=== PATIENT | male | born 1985 | race Hispanic/Latino ===

== ENCOUNTER 2017-07-14 17:54 | Emergency (ER) | payer SELFPAY ==
[~2017-07-14] VITALS: Ht 185.4 cm; Wt 159.0 kg
[~2017-07-14 17:54] MED LIST: CEPHALEXIN500 MG PO; LORTAB 5 OR; NO HOME MEDS; ROBITUSSIN AC10 ML PO; ULTRAM50 M1 PO
[2017-07-14] MEDS ORDERED: NAPROSYN500 MG PO (19:05)
[2017-07-14 19:09] VITALS: BP 133/84
== END 2017-07-14 19:10 | disposition home or self-care (01) | DRG 563 ==
LOC: ED 17:54
DX: S93.601A Unspecified sprain of right foot, initial encounter (principal); M79.671 Pain in right foot

== ENCOUNTER 2017-12-07 09:13 | Emergency (ER) | payer OTHER ==
[~2017-12-07] VITALS: Ht 185.4 cm; Wt 190.0 kg
[~2017-12-07 09:13] MED LIST changes: +NAPROSYN500 MG PO
[2017-12-07] MEDS ORDERED: MUCINEX DM1 TA1 PO (09:29)
[2017-12-07] MEDS ORDERED: BACTRIM DS1 TAB PO (09:46)
[2017-12-07] MEDS ORDERED: TESSALON PER100 MG PO (09:46)
[2017-12-07] MEDS ORDERED: PREDNISONE50 MG PO (09:46)
[2017-12-07] MEDS ORDERED: VALTREX1 GM PO (09:46)
[2017-12-07 09:54] VITALS: BP 158/88
== END 2017-12-07 10:03 | disposition home or self-care (01) ==
LOC: ED 09:13
DX: G51.0 Bell's palsy (principal); J01.90 Acute sinusitis, unspecified; G47.30 Sleep apnea, unspecified; J45.909 Unspecified asthma, uncomplicated; R05 Cough; R53.1 Weakness; R42 Dizziness and giddiness; R09.81 Nasal congestion

== ENCOUNTER 2018-02-20 07:42 | Emergency (ER) | payer SELFPAY ==
[~2018-02-20] VITALS: Ht 185.4 cm; Wt 182.0 kg
[~2018-02-20 07:42] MED LIST changes: +BACTRIM DS1 TAB PO; +MUCINEX DM1 TA1 PO; +PREDNISONE50 MG PO; +TESSALON PER100 MG PO; +VALTREX1 GM PO
[2018-02-20 08:36] LABS: HEMATOCRIT 47.5 % (39.0-50.0); IMMATURE GRANULOCYTES 0.4 % (0.0-5.0); MEAN CELL VOLUME 88.1 fL CALC (80.0-100.0); MEAN CORPUSCULAR HGB 27.8 pG CALC (26.0-32.0); MEAN CORPUSCULAR HGB CONC 31.6 g/L CALC (32.0-36.0); NEUT# 6.61 thou/uL (1.82-7.42); RED BLOOD COUNT 5.39 mill/uL (4.70-6.10); RED CELL DISTRI WIDTH 13.7 % (11.5-15.5)
[2018-02-20 08:53] LABS: ALKALINE PHOSPHATASE 58 u/l (38-126); ANION GAP 12 (6-22 (CALC)); BILIRUBIN, TOTAL 0.5 mg/dL (0.0-1.4); BUN 17 mg/dL (9-20); BUN/CREATININE RATIO 20 (12-20 (CALC)); CARBON DIOXIDE 28 mmol/l (22-30); CHLORIDE 105 mmol/l (95-108); CREATININE 0.9 mg/dL (0.7-1.3); GFR > 60 ML/MIN (>=60 (CALC)); GFR FOR AFR.AMER. > 60 ML/MIN (>=60 (CALC)); POTASSIUM 4.3 mmol/l (3.5-5.1); SGOT/AST 37 u/l (17-59); SODIUM 142 mmol/l (137-146)
[2018-02-20 08:55] LABS: ALBUMIN 4.2 g/dL (3.2-5.0); TOTAL PROTEIN 7.8 g/dL (6.3-8.2)
[2018-02-20 09:10] VITALS: BP 133/99
== END 2018-02-20 09:11 | disposition home or self-care (01) | DRG 948 ==
LOC: ED 07:42
PROVIDERS: Emergency Medicine
DX: R60.0 Localized edema (principal); R22.43 Localized swelling, mass and lump, lower limb, bilateral

== ENCOUNTER 2020-07-16 | Emergency (ER) | payer MEDICAID ==
[2020-07-16 23:48] LABS: HEMATOCRIT 46.6 % (39.0-50.0); HEMOGLOBIN 13.9 g/dl (14.0-18.0); IMMATURE GRANULOCYTES 0.6 % (0.0-5.0); MEAN CELL VOLUME 88.8 fL CALC (80.0-100.0); MEAN CORPUSCULAR HGB 26.5 pG CALC (26.0-32.0); MEAN CORPUSCULAR HGB CONC 29.8 g/dL CAL (32.0-36.0); NEUT# 9.82 thou/uL (1.82-7.42); RED BLOOD COUNT 5.25 mill/uL (4.70-6.10); RED CELL DISTRI WIDTH 14.8 % (11.5-15.5)
[2020-07-16 23:50] LABS: URINE BILIRUBIN - DIPSTICK NEGATIVE (NEGATIVE); URINE BLOOD DIPSTICK NEGATIVE (NEGATIVE); URINE COLOR YELLOW; URINE GLUCOSE - DIPSTICK NEGATIVE (NEGATIVE); URINE KETONE NEGATIVE (NEGATIVE); URINE LEUK ESTERASE NEGATIVE (NEGATIVE); URINE PROTEIN - DIPSTICK NEGATIVE (NEG-TRACE); URINE SPECIFIC GRAVITY 1.025
[2020-07-17] LABS: URINE NITRITE - DIPSTICK NEGATIVE (Negative)
[2020-07-17 00:06] LABS: ALKALINE PHOSPHATASE 74 u/l (38-126); BUN 18 mg/dL (9-20); BUN/CREATININE RATIO 16 (12-20 (CALC)); CHLORIDE 95 mmol/l (95-108); CREATININE 1.1 mg/dL (0.7-1.3); GFR > 60 ML/MIN (>=60 (CALC)); GFR FOR AFR.AMER. > 60 ML/MIN (>=60 (CALC)); SODIUM 137 mmol/l (137-146); TOTAL PROTEIN 7.8 g/dL (6.3-8.2)
[2020-07-17 00:17] LABS: ANION GAP 11 (6-22 (CALC)); BILIRUBIN, TOTAL 0.6 mg/dL (0.0-1.4); CARBON DIOXIDE 35 mmol/l (22-30); SGOT/AST 80 u/l (17-59)
== END 2020-07-17 03:39 | disposition short-term general hospital (02) ==
PROVIDERS: Emergency Medicine
DX: L03.115 Cellulitis of right lower limb (principal); R06.00 Dyspnea, unspecified; R09.02 Hypoxemia; J45.909 Unspecified asthma, uncomplicated; E66.01 Morbid (severe) obesity due to excess calories; F17.200 Nicotine dependence, unspecified, uncomplicated; Z20.822 Contact with and (suspected) exposure to COVID-19
CPT/HCPCS: J1650

== ENCOUNTER 2021-07-15 12:08 | Emergency (ER) | payer MEDICAID ==
[~2021-07-15] VITALS: Ht 185.4 cm; Wt 193.0 kg
[2021-07-15] VITALS (12 sets, daily range): BP systolic 140–198; BP diastolic 84–123
[2021-07-15 13:01] LABS: HEMATOCRIT 48.8 % (39.0-50.0); IMMATURE GRANULOCYTES 0.8 % (0.0-5.0); MEAN CELL VOLUME 89.2 fL CALC (80.0-100.0); MEAN CORPUSCULAR HGB 25.6 pG CALC (26.0-32.0); MEAN CORPUSCULAR HGB CONC 28.7 g/dL CAL (32.0-36.0); NEUT# 7.45 thou/uL (1.82-7.42); RED BLOOD COUNT 5.47 mill/uL (4.70-6.10); RED CELL DISTRI WIDTH 16.7 % (11.5-15.5)
[2021-07-15 13:15] LABS: ALBUMIN 3.8 g/dL (3.2-5.0); ALKALINE PHOSPHATASE 76 u/l (38-126); ANION GAP 9 (6-22 (CALC)); BILIRUBIN, TOTAL 0.4 mg/dL (0.0-1.4); BUN 14 mg/dL (9-20); BUN/CREATININE RATIO 18 (12-20 (CALC)); CARBON DIOXIDE 38 mmol/l (22-30); CHLORIDE 96 mmol/l (95-108); CREATININE 0.8 mg/dL (0.7-1.3); GFR > 60 ML/MIN (>=60 (CALC)); GFR FOR AFR.AMER. > 60 ML/MIN (>=60 (CALC)); LIPASE 169 u/l (23-300); POTASSIUM 4.4 mmol/l (3.5-5.1); SGOT/AST 121 u/l (17-59); SODIUM 138 mmol/l (137-146); TOTAL PROTEIN 7.7 g/dL (6.3-8.2)
[2021-07-15 13:27] LABS: MYOGLOBIN 97 ng/mL (0 - 121)
[2021-07-15 15:35] LABS: URINE BILIRUBIN - DIPSTICK NEGATIVE (NEGATIVE); URINE BLOOD DIPSTICK NEGATIVE (NEGATIVE); URINE COLOR YELLOW; URINE GLUCOSE - DIPSTICK >=1000 mg/dL (NEGATIVE); URINE KETONE NEGATIVE (NEGATIVE); URINE LEUK ESTERASE NEGATIVE (NEGATIVE); URINE PROTEIN - DIPSTICK 30 mg/dL (NEG-TRACE); URINE SPECIFIC GRAVITY >=1.030; URINE UROBILINOGEN - DIPSTICK 0.2 E.U./dL (0.2)
[2021-07-15 15:42] LABS: URINE NITRITE - DIPSTICK NEGATIVE (Negative)
[2021-07-15 15:53] LABS: URINE RBC 0-2 RBC/hpf (0-5); URINE WBC 0-2 WBC/hpf (0-5)
== END 2021-07-15 20:38 | disposition short-term general hospital (02) ==
LOC: ED 12:08
PROVIDERS: Nurse Practitioner
DX: I11.0 Hypertensive heart disease with heart failure (principal); I50.9 Heart failure, unspecified; J44.1 Chronic obstructive pulmonary disease with (acute) exacerbation; J96.01 Acute respiratory failure with hypoxia; J96.02 Acute respiratory failure with hypercapnia; R94.31 Abnormal electrocardiogram [ECG] [EKG]; R79.89 Other specified abnormal findings of blood chemistry; E11.9 Type 2 diabetes mellitus without complications; G47.33 Obstructive sleep apnea (adult) (pediatric); F17.200 Nicotine dependence, unspecified, uncomplicated; Z20.822 Contact with and (suspected) exposure to COVID-19
CPT/HCPCS: J1650

== ENCOUNTER 2021-10-12 11:12 | Emergency (ER) | payer MEDICAID ==
[~2021-10-12] VITALS: Ht 185.4 cm; Wt 209.5 kg
[2021-10-12 14:12] LABS: HEMATOCRIT 48.6 % (39.0-50.0); HEMOGLOBIN 14.2 g/dl (14.0-18.0); IMMATURE GRANULOCYTES 0.6 % (0.0-5.0); MEAN CELL VOLUME 88.7 fL CALC (80.0-100.0); MEAN CORPUSCULAR HGB 25.9 pG CALC (26.0-32.0); MEAN CORPUSCULAR HGB CONC 29.2 g/dL CAL (32.0-36.0); NEUT# 9.74 thou/uL (1.82-7.42); RED BLOOD COUNT 5.48 mill/uL (4.70-6.10); RED CELL DISTRI WIDTH 16.7 % (11.5-15.5)
[2021-10-12 14:33] LABS: ALBUMIN 3.6 g/dL (3.2-5.0); ALKALINE PHOSPHATASE 78 u/l (38-126); ANION GAP 8 (6-22 (CALC)); BILIRUBIN, TOTAL 0.4 mg/dL (0.0-1.4); BUN 13 mg/dL (9-20); BUN/CREATININE RATIO 17 (12-20 (CALC)); CARBON DIOXIDE 36 mmol/l (22-30); CHLORIDE 95 mmol/l (95-108); CREATININE 0.8 mg/dL (0.7-1.3); GFR FOR AFR.AMER. > 60 ML/MIN (>=60 (CALC)); GFR OTHER RACES > 60 ML/MIN (>=60 (CALC)); POTASSIUM 4.3 mmol/l (3.5-5.1); SGOT/AST 56 u/l (17-59); SODIUM 134 mmol/l (137-146); TOTAL PROTEIN 7.5 g/dL (6.3-8.2)
[2021-10-12] MEDS ORDERED: VIBRAMYCIN100 M2 PO (16:29)
[2021-10-12 16:36] VITALS: BP 132/59
== END 2021-10-12 18:00 | disposition left against medical advice (07) ==
LOC: ED 11:12
PROVIDERS: Nurse Practitioner
DX: L02.416 Cutaneous abscess of left lower limb (principal); L02.415 Cutaneous abscess of right lower limb; E66.01 Morbid (severe) obesity due to excess calories; J45.909 Unspecified asthma, uncomplicated; F17.200 Nicotine dependence, unspecified, uncomplicated; Z91.19 Patient's noncompliance with other medical treatment and regimen

== ENCOUNTER 2023-02-24 16:17 | Emergency (ER) | payer MEDICAID ==
[~2023-02-24] VITALS: Ht 185.4 cm; Wt 172.3 kg
[~2023-02-24 16:17] MED LIST changes: +VIBRAMYCIN100 M2 PO
[2023-02-24] MEDS ORDERED: ZPAK PO (18:41)
[2023-02-24 18:51] VITALS: BP 111/70
== END 2023-02-24 19:15 | disposition home or self-care (01) ==
LOC: ED 16:17
DX: B34.9 Viral infection, unspecified (principal); J45.909 Unspecified asthma, uncomplicated; E11.9 Type 2 diabetes mellitus without complications; F17.200 Nicotine dependence, unspecified, uncomplicated; Z20.822 Contact with and (suspected) exposure to COVID-19

== ENCOUNTER 2023-06-20 19:42 | Emergency (ER) | payer OTHER ==
[~2023-06-20] VITALS: Ht 185.4 cm; Wt 174.6 kg
[~2023-06-20 19:42] MED LIST changes: +ZPAK PO
[2023-06-20] MEDS ORDERED: ACETAMINOPHEN 500 MG TAB PO ONE (20:35)
[2023-06-20] MEDS ORDERED: IBUPROFEN 800 MG/TAB PO ONE (20:35)
[2023-06-20 23:14] VITALS: BP 116/75
== END 2023-06-20 23:35 | disposition home or self-care (01) ==
LOC: ED 19:42
DX: S63.91XA Sprain of unspecified part of right wrist and hand, initial encounter (principal); E11.9 Type 2 diabetes mellitus without complications; J45.909 Unspecified asthma, uncomplicated; W01.0XXA Fall on same level from slipping, tripping and stumbling without subsequent striking against object, initial encounter